=== PATIENT | female | born 1960 | race African-American/Black ===

== ENCOUNTER → 2017-02-08 | Outpatient (CLI) | payer OTHER ==
[~2017-02-08] MED LIST: ABILIFY5 M1 PO; AMLODIPINE BESYL5 M1 PO; FUROSEMIDE20 MG PO; GLU850 PO; LASIX20 MG PO; LISINOPRIL40 MG PO; MAG PO; MOBIC PO; NEU300 PO; NOR5 PO; OMEPRAZOLE DR20 M1 PO; SER25 PO; ZES20 PO
== END | disposition home or self-care (01) ==
LOC: CT 10:00
PROC: BW21ZZZ Computerized Tomography (CT Scan) of Abdomen and Pelvis (ICD-10-PCS; principal; 2017-02-08)
DX: R10.9 Unspecified abdominal pain (principal)

== ENCOUNTER 2017-05-10 16:20 | Emergency (ER) | payer OTHER ==
[~2017-05-10] VITALS: Ht 160 cm; Wt 78.0 kg
[2017-05-10 16:23] VITALS: BP 163/90
== END 2017-05-10 18:36 | disposition home or self-care (01) ==
LOC: ED 16:20
DX: K04.7 Periapical abscess without sinus (principal); F20.9 Schizophrenia, unspecified; J44.9 Chronic obstructive pulmonary disease, unspecified; F41.9 Anxiety disorder, unspecified; I50.9 Heart failure, unspecified; Z79.899 Other long term (current) drug therapy; Z86.73 Personal history of transient ischemic attack (TIA), and cerebral infarction without residual deficits; Z88.2 Allergy status to sulfonamides; Z88.5 Allergy status to narcotic agent
CPT/HCPCS: J0696

== ENCOUNTER 2017-05-17 22:47 | Emergency (ER) | payer OTHER ==
[2017-05-17 23:19] VITALS: BP 151/97
== END 2017-05-18 01:41 | disposition left against medical advice (07) ==
LOC: ED 22:47
DX: Z53.21 Procedure and treatment not carried out due to patient leaving prior to being seen by health care provider (principal)

== ENCOUNTER 2017-05-18 18:56 | Emergency (ER) | payer OTHER ==
[2017-05-18 19:35] VITALS: BP 145/87
== END 2017-05-18 21:09 | disposition left against medical advice (07) ==
LOC: ED 18:56
DX: Z53.21 Procedure and treatment not carried out due to patient leaving prior to being seen by health care provider (principal)